=== PATIENT | female | born 1985 | race American Indian/Alaskan Native ===

== ENCOUNTER 2018-11-22 21:57 | Inpatient (IN) | payer OTHER ==
[2018-11-22 23:35] LABS: HCG Qualitative,Urine Positive (Negative)
[2018-11-22 23:37] LABS: Bilirubin,Urine NEG (Negative); Blood,Urine LG (Negative); Color,Urine Yellow (Yellow); Mucus,Urine FEW /HPF
[2018-11-22 23:38] LABS: RBC,Urine > 182.0 /HPF (0.0-6.0)
[2018-11-23 01:03] LABS: Basophils % (Auto) 0.3 % (0.0-1.8); Eosinophils % (Auto) 0.2 % (0.0-4.3); Hematocrit 33.3 % (30.3-42.9); Hemoglobin 11.4 gm/dl (10.1-14.3); Lymphocytes # (Auto) 1.7 K/mm3 (1.2-5.4); Lymphocytes % (Auto) 15.6 % (13.4-35.0); Mean Corpuscular HGB Conc 34 % (30-34); Mean Corpuscular Volume 81 fl (79-97); Monocytes # (Auto) 0.7 K/mm3 (0.0-0.8); Monocytes % (Auto) 6.4 % (0.0-7.3); Platelet Count 218 K/mm3 (140-440); Red Blood Count 4.11 M/mm3 (3.65-5.03); Red Cell Distribution Width 13.9 % (13.2-15.2)
[2018-11-23 01:18] LABS: Alanine Aminotransferase 6 units/L (7-56); Albumin 3.8 g/dL (3.9-5); BUN/Creatinine Ratio 23; Blood Urea Nitrogen 7 mg/dL (7-17); Calcium 8.8 mg/dL (8.4-10.2); Hemolysis Index 0
[2018-11-23 02:44] LABS: Bilirubin,Urine NEG (Negative); Blood,Urine LG (Negative); Color,Urine Yellow (Yellow); Mucus,Urine FEW /HPF; Urobilinogen,Urine < 2.0 mg/dL (<2.0)
[2018-11-23 02:48] LABS: HCG Qualitative,Urine Positive (Negative)
[2018-11-23 02:49] LABS: RBC,Urine > 182.0 /HPF (0.0-6.0)
--- NOTE | 2018-11-23 03:33 | Ultrasound Report ---
US OB >= 14 weeks Fetus INDICATION / CLINICAL INFORMATION: Abdominal pain and vaginal bleeding. COMPARISON: None available. FINDINGS: There is a single intrauterine with an estimated sonographic gestational age of 21 weeks 6 days and an YARA of 03/30/2019. Clinical dates are 24 weeks. The heart rate ranges from 192 thro ugh 203 bpm. presentation is cephalic. The head is low and appears to be in the endocervi gissell canal. No amniotic fluid is seen. The placenta is located posteriorly, is grade 0 and is free of the os. anatomy is difficult to evaluate due to oligohydramnios. The ovaries or not seen. IMPRESSION: 1. Single 21 week 6 day intrauterine . 2. Marked oligohydramnios. presentation is cephalic and the head appears to be in the reg ion of the cervix. Signer Name: Gigi Rutledge MD Signed: 11/23/2018 3:29 AM Workstation Name: [id number]
--- NOTE | 2018-11-23 03:51 | Emergency Department Report ---
ED Female HPI - General Chief complaint: Abdominal Pain Stated complaint: ABD PAIN AND VAGINAL BLEEDING Time Seen by Provider: 11/23/18 02:11 Source: patient, EMS Mode of arrival: Ambulatory Limitations: No Limitations - History of Present Illness Initial comments: Patient is a 33-year-old female who presented for abdominal pain and vaginal bleeding that started today now with symptoms of constipation pt denies fever or chills no n/v no back pain MD Complaint: vaginal bleeding, pelvic pain Onset/Timin -: days(s) Time: 08:00 Radiation: suprapubic Severity: moderate Severity scale (0 -10): 5 Quality: cramping, sharp Consistency: constant Improves with: none Worsens with: none Are you Now?: No Associated Symptoms: vaginal bleeding, abdominal pain - Related Data Sexually active: Yes : 0 Para: 0 A: 0 Previous Rx's Medication Instructions Recorded Last Taken Type Metoprolol [Lopressor TAB] 50 mg PO BID #60 tablet 02/01/17 Unknown Rx Allergies Allergy/AdvReac Type Severity Reaction Status Date / Time No Known Allergies Allergy Verified 01/31/17 22:37 ED Review of Systems ROS: Stated complaint: ABD PAIN AND VAGINAL BLEEDING Other details as noted in HPI Constitutional: denies: chills, fever Eyes: denies: eye pain, eye discharge, vision change ENT: denies: ear pain, throat pain Respiratory: denies: cough, shortness of breath, wheezing Cardiovascular: as per HPI Endocrine: no symptoms reported Gastrointestinal: abdominal pain. denies: nausea, vomiting, diarrhea Genitourinary: abnormal menses, other (vaginal bleeding ). denies: urgency, dysuria, frequency, discharge Musculoskeletal: back pain. denies: joint swelling, arthralgia Skin: denies: rash, lesions Neurological: denies: headache, weakness, paresthesias Psychiatric: denies: anxiety, depression Hematological/Lymphatic: denies: easy bleeding, easy bruising ED Past Medical Hx - Past Medical History Hx Hypertension: Yes - Social History Smoking Status: Current Every Day Smoker Substance Use Type: None - Medications Home Medications: Home Medications Medication Instructions Recorded Confirmed Last Taken Type Metoprolol [Lopressor TAB] 50 mg PO BID #60 tablet 02/01/17 Unknown Rx ED Physical Exam - General Limitations: No Limitations General appearance: alert, in no apparent distress - Head Head exam: Present: atraumatic, normocephalic - Eye Eye exam: Present: normal appearance, PERRL, EOMI Pupils: Present: normal accommodation - ENT ENT exam: Present: mucous membranes moist - Neck Neck exam: Present: normal inspection, full ROM. Absent: tenderness - Respiratory Respiratory exam: Present: normal lung sounds bilaterally. Absent: respiratory distress, wheezes, stridor, chest wall tenderness - Cardiovascular Cardiovascular Exam: Present: regular rate, normal rhythm, normal heart sounds - GI/Abdominal GI/Abdominal exam: Present: soft, normal bowel sounds. Absent: distended, tenderness, guarding, rebound, bruit, hernia - Rectal Rectal exam: Present: deferred - External exam: Present: normal external exam Speculum exam: Present: other ( on exam ) - Extremities Exam Extremities exam: Present: normal inspection, full ROM, normal capillary refill. Absent: tenderness, pedal edema, calf tenderness - Back Exam Back exam: Present: normal inspection, full ROM. Absent: tenderness, CVA tenderness (R), CVA tenderness (L), muscle spasm, paraspinal tenderness, rash noted - Neurological Exam Neurological exam: Present: alert, oriented X3, CN II-XII intact, normal gait, reflexes normal - Psychiatric Psychiatric exam: Present: normal affect, normal mood - Skin Skin exam: Present: warm, dry, intact, normal color. Absent: rash ED Course Vital Signs 11/22/18 11/23/18 23:04 03:26 Temperature 97.7 F 99.7 F H Pulse Rate 109 H 109 H Respiratory 18 20 Rate Blood Pressure 173/90 Blood Pressure 159/100 [Right] O2 Sat by Pulse 96 100 Oximetry ED Medical Decision Making - Lab Data Result diagrams: 11/23/18 00:45 11/23/18 00:45 Lab Results 11/22/18 11/23/18 11/23/18 Range/Units 23:20 00:45 00:45 WBC 11.1 H (4.5-11.0) K/mm3 RBC 4.11 (3.65-5.03) M/mm3 Hgb 11.4 (10.1-14.3) gm/dl Hct 33.3 (30.3-42.9) % MCV 81 (79-97) fl MCH 28 (28-32) pg MCHC 34 (30-34) % RDW 13.9 (13.2-15.2) % Plt Count 218 (140-440) K/mm3 Lymph % (Auto) 15.6 (13.4-35.0) % Stone % (Auto) 6.4 (0.0-7.3) % Eos % (Auto) 0.2 (0.0-4.3) % Baso % (Auto) 0.3 (0.0-1.8) % Lymph # 1.7 (1.2-5.4) K/mm3 Stone # 0.7 (0.0-0.8) K/mm3 Eos # 0.0 (0.0-0.4) K/mm3 Baso # 0.0 (0.0-0.1) K/mm3 Seg Neutrophils % 77.5 H (40.0-70.0) % Seg Neutrophils # 8.6 H (1.8-7.7) K/mm3 Sodium 134 L (137-145) mmol/L Potassium 3.6 (3.6-5.0) mmol/L Chloride 103.4 (98-107) mmol/L Carbon Dioxide 15 L (22-30) mmol/L Anion Gap 19 mmol/L BUN 7 (7-17) mg/dL Creatinine 0.3 L (0.7-1.2) mg/dL Estimated GFR > 60 ml/min BUN/Creatinine Ratio 23 % Glucose 98 (65-100) mg/dL Calcium 8.8 (8.4-10.2) mg/dL Total Bilirubin 0.20 (0.1-1.2) mg/dL AST 15 (5-40) units/L ALT 6 L (7-56) units/L Alkaline Phosphatase 84 (35-129) units/L Total Protein 7.2 (6.3-8.2) g/dL Albumin 3.8 L (3.9-5) g/dL Albumin/Globulin Ratio 1.1 % Lipase 38 (13-60) units/L HCG, Quant (0-4) mIU/mL Urine Color Yellow (Yellow) Urine Turbidity Slightly-cloudy (Clear) Urine pH 5.0 (5.0-7.0) Ur Specific [place] 1.033 H (1.003-1.030) Urine Protein 100 mg/dl (Negative) mg/dL Urine Glucose (UA) Neg (Negative) mg/dL Urine Ketones 80 (Negative) mg/dL Urine Blood Lg (Negative) Urine Nitrite Neg (Negative) Ur Reducing Substances Not Reportable Urine Bilirubin Neg (Negative) Urine Ictotest Not Reportable Urine Urobilinogen 2.0 (<2.0) mg/dL Ur Leukocyte Esterase Mod (Negative) Urine WBC (Auto) 5.0 (0.0-6.0) /HPF Urine RBC (Auto) > 182.0 (0.0-6.0) /HPF U Epithel Cells (Auto) 1.0 (0-13.0) /HPF Urine Mucus Few /HPF Urine HCG, Qual Positive A (Negative) Blood Type 11/23/18 11/23/18 11/23/18 Range/Units 02:00 02:02 02:10 WBC (4.5-11.0) K/mm3 RBC (3.65-5.03) M/mm3 Hgb (10.1-14.3) gm/dl Hct (30.3-42.9) % MCV (79-97) fl MCH (28-32) pg MCHC (30-34) % RDW (13.2-15.2) % Plt Count (140-440) K/mm3 Lymph % (Auto) (13.4-35.0) % Stone % (Auto) (0.0-7.3) % Eos % (Auto) (0.0-4.3) % Baso % (Auto) (0.0-1.8) % Lymph # (1.2-5.4) K/mm3 Stone # (0.0-0.8) K/mm3 Eos # (0.0-0.4) K/mm3 Baso # (0.0-0.1) K/mm3 Seg Neutrophils % (40.0-70.0) % Seg Neutrophils # (1.8-7.7) K/mm3 Sodium (137-145) mmol/L Potassium (3.6-5.0) mmol/L Chloride (98-107) mmol/L Carbon Dioxide (22-30) mmol/L Anion Gap mmol/L BUN (7-17) mg/dL Creatinine (0.7-1.2) mg/dL Estimated GFR ml/min BUN/Creatinine Ratio % Glucose (65-100) mg/dL Calcium (8.4-10.2) mg/dL Total Bilirubin (0.1-1.2) mg/dL AST (5-40) units/L ALT (7-56) units/L Alkaline Phosphatase (35-129) units/L Total Protein (6.3-8.2) g/dL Albumin (3.9-5) g/dL Albumin/Globulin Ratio % Lipase (13-60) units/L HCG, Quant 9050 H (0-4) mIU/mL Urine Color Yellow (Yellow) Urine Turbidity Clear (Clear) Urine pH 6.0 (5.0-7.0) Ur Specific [place] 1.015 (1.003-1.030) Urine Protein 30 mg/dl (Negative) mg/dL Urine Glucose (UA) Neg (Negative) mg/dL Urine Ketones 80 (Negative) mg/dL Urine Blood Lg (Negative) Urine Nitrite Neg (Negative) Ur Reducing Substances Urine Bilirubin Neg (Negative) Urine Ictotest Urine Urobilinogen < 2.0 (<2.0) mg/dL Ur Leukocyte Esterase Mod (Negative) Urine WBC (Auto) 25.0 H (0.0-6.0) /HPF Urine RBC (Auto) > 182.0 (0.0-6.0) /HPF U Epithel Cells (Auto) 1.0 (0-13.0) /HPF Urine Mucus Few /HPF Urine HCG, Qual Positive A (Negative) Blood Type AB POSITIVE - Radiology Data Radiology results: report reviewed, image reviewed Ordering Physician: NIKOLAY ASCENCIO NP Date of Service: 11/23/18 Procedure(s): US OB >= 14 weeks Fetus Accession Number(s): [id number] cc: NIKOLAY ASCENCIO NP OB >= 14 weeks Fetus INDICATION / CLINICAL INFORMATION: Abdominal pain and vaginal bleeding. COMPARISON: None available. FINDINGS: There is a single intrauterine with an estimated sonographic gestational age of 21 weeks 6 days and an YARA of 03/30/2019. Clinical dates are 24 weeks. The heart rate ranges from 192 through 203 bpm. presentation is cephalic. The head is low and appears to be in the endocervical canal. No amniotic fluid is seen. The placenta is located posteriorly, is grade 0 and is free of the os. anatomy is difficult to evaluate due to oligohydramnios. The ovaries or not seen. IMPRESSION: 1. Single 21 week 6 day intrauterine . 2. Marked oligohydramnios. presentation is cephalic and the head appears to be in the region of the cervix. Signer Name: Gigi Rutledge MD Signed: 11/23/2018 3:29 AM Workstation Name: [id number] Transcribed By: RT Dictated By: Gigi Rutledge MD Electronically Authenticated By: Gigi Rutledge MD Signed Date/Time: 11/23/18328 DD/ 2 TD/TT: - Medical Decision Making US IUP 22weeks low riding to cervical canal FHR 192, OB Paged , pt prep for transport ob, ABO: AB positive, Labs noted h/h normal, OB Team to bedside pt transported to OB at this time for definitive treatment. Critical care attestation.: If time is entered above; I have spent that time in minutes in the direct care of this critically ill patient, excluding procedure time. ED Disposition Clinical Impression: Spontaneous onset of labor Qualifiers: Weeks of gestation: 22 weeks Qualified Code(s): Z3A.22 - 22 weeks gestation of Disposition: 09 OP ADMIT IP TO THIS HOSP Is pt being admited?: Yes Does the pt Need Aspirin: No Condition: Stable Instructions: (ED), Early Labor Signs (ED) Time of Disposition: 04:20
[2018-11-23] MEDS ORDERED: ZOFRAN IV PRN (04:09)
[2018-11-23] MEDS ORDERED: DULCOLAX PR PRN (04:09)
[2018-11-23] MEDS ORDERED: TUCKS PAD TP PRN (04:09)
[2018-11-23] MEDS ORDERED: BENADRYL PO PRN (04:09)
[2018-11-23] MEDS ORDERED: MILK OF MAGNESIA PO PRN (04:09)
[2018-11-23] MEDS ORDERED: LANSINOH TP PRN (04:09)
[2018-11-23] MEDS ORDERED: TYLENOL PO PRN (04:09)
[2018-11-23] MEDS ORDERED: PHENERGAN PO PRN (04:09)
[2018-11-23] MEDS ORDERED: CYTOTEC ONE (04:25)
[2018-11-23] MEDS ORDERED: NACL 0.9% 1000 ML 1,000 ML ONE (04:27)
--- NOTE | 2018-11-23 04:31 | Event Note ---
Attendance - Indication Indication for delivery Attendance: Prematurity Mode of Delivery: Vaginal Delivery Room Comment: Called to delivery in ER. Mother unaware of and with no care. Mother estimates her last period was in June. ultrasound estimated 21.6 weeks. Mother taken to L&D and subsequently delivered. Baby taken to [facility] and was dryed, warmed, and bulb suctioned. On initial exam baby appears to be ~ 22 weeks. HR remained < 60 throughout process. Infant swaddled and taken to mother for comfort care. - at 1 minute: 0 Disposition - Disposition Disposition: Remained with Mother
--- NOTE | 2018-11-23 04:42 | Procedure Note ---
OB Delivery Note - Delivery Date of Delivery: 11/23/18 Customer Service Coordinator: ROMÁN MAK Estimated blood loss: 200cc - Vaginal Delivery presentation: vertex Intrapartum events: no care, foul smelling fluid Delivery induction: none Delivery monitor: none Route of delivery: Episiotomy: none Delivery laceration: none Anesthesia: none Delivery comments: Called urgently to the ED for imminent delivery of a pt with no care. Pt was noted to be fully dialted FHR >100 with doppler. Decision to move to L&D to better facilitate delivery and care for NB. demise very small baby NICU present 0/0. Pt very distraught Family members called by pt to come to the hospital. Placenta remains intact 30 min after delivery, minimal bleeding Pt OOB to void Cytotec 800mcg placed DC Baby remains in room with pt. Dr Munson made aware of situation. Pt given Fentanyl 100mcg IVP Placenta delivered manual extraction complete and intact, 3 vessels. Sent to pathology - Infant A at 1 minute: 0 at 5 minutes: 0 Infant Gender: Ambiguous
[2018-11-23] MEDS ORDERED: SODIUM CHLORIDE FLUSH SYRINGE 10 ML IV PRN (05:00)
[2018-11-23] MEDS ORDERED: SUBLIMAZE ONE (05:09)
[2018-11-23] MEDS ORDERED: SUBLIMAZE IV ONE (05:26)
[2018-11-23] MEDS ORDERED: CYTOTEC PR ONE (05:26)
[2018-11-23] MEDS ORDERED: PITOCin/NS 20 UNIT/1000ML DRIP 20 UNITS/1,000 ML BAG IV SCH ×2 (06:00)
[2018-11-23 06:26] LABS: Hepatitis C Virus Antibody Non-Reactive (NonReactive)
--- NOTE | 2018-11-23 06:47 | History and Physical Report ---
History of Present Illness Date of examination: 11/23/18 (pt presented to ED @ 2230 on 11-22-18 with severe pain) Date of admission: 11/23/18 03:46 Chief complaint: severe abdominal pain with bleeding that started Thursday Pt states she had a gush of fluid on Thursday @ 1999 "I did not know I was ." History of present illness: LMP June 2018 Chronic Htn had been on Metoprolol but has not taken it for several years Surgery T&A 2014 Denies drinking, former marijuana user; smokes 1 pk cigarets a day Again pt denies knowing she was Past History - Obstetrical History : 1 Para: 0 Hx # Term Pregnancies: 0 Number of Pregnancies: 0 Spontaneous Abortions: 1 (20 week demise) Induced : 0 Number of Living Children: 0 Medications and Allergies Allergies Allergy/AdvReac Type Severity Reaction Status Date / Time No Known Allergies Allergy Verified 01/31/17 22:37 Home Medications Medication Instructions Recorded Confirmed Last Taken Type Metoprolol [Lopressor TAB] 50 mg PO BID #60 tablet 02/01/17 Unknown Rx Labetalol [Labetalol 200mg TAB] 200 mg PO BID #60 tablet 11/23/18 Unknown Rx Active Meds: Active Medications Acetaminophen (Tylenol) 650 mg PO Q4H PRN PRN Reason: Pain MILD(1-3)/Fever >100.5/RAMOS Bisacodyl (Dulcolax) 10 mg FL BID PRN PRN Reason: Constipation Diphenhydramine HCl (Benadryl) 25 mg PO Q6H PRN PRN Reason: Itching Diphtheria/Tetanus/Acell Pertussis (Boostrix) 0.5 ml IM .ONCE ONE Stop: 11/24/18 06:01 Docusate Sodium (Colace) 100 mg PO BID LUNA Oxytocin/Sodium Chloride (Pitocin/Ns 20 Unit/1000ml Drip) 20 units in 1,000 mls @ 125 mls/hr IV DIRECT LUNA Ibuprofen (Ibuprofen) 600 mg PO Q6HR LUNA Magnesium Hydroxide (Milk Of Magnesia) 30 ml PO HS PRN PRN Reason: Constipation Measles/Mumps/Rubella Vaccine Live (M-M-R Ii Vaccine) 0.5 ml SUB-Q .ONCE ONE Stop: 11/24/18 04:10 Multi-Ingredient Ointment (Lansinoh) 1 applic TP PRN PRN PRN Reason: Sore Nipples Multivitamins/Iron/Calcium ( Vitamin) 1 each PO QDAY LUNA Ondansetron HCl (Zofran) 4 mg IV Q8H PRN PRN Reason: Nausea And Vomiting Promethazine HCl (Phenergan) 25 mg PO Q6H PRN PRN Reason: Nausea And Vomiting Sodium Chloride (Sodium Chloride Flush Syringe 10 Ml) 10 ml IV PRN PRN PRN Reason: LINE FLUSH Witch Sarah/Glycerin (Tucks Pad) 1 each TP PRN PRN PRN Reason: Hemorrhoid/cleansing/soothing - Vital Signs Vital signs: Vital Signs Temp Pulse Resp BP Pulse Ox 97.7 F 109 H 18 173/90 96 11/22/18 23:04 11/22/18 23:04 11/22/18 23:04 11/22/18 23:04 11/22/18 23:04 Temp Pulse Resp BP Pulse Ox 97.3 F L 78 18 148/80 100 11/23/18 05:00 11/23/18 06:34 11/23/18 05:00 11/23/18 06:34 11/23/18 03:47 - Physical Exam Breasts: Positive: deferred Cardiovascular: Regular rate, Normal S1, Normal S2 Lungs: Positive: Normal air movement Abdomen: Positive: normal appearance, soft, normal bowel sounds. Negative: distention, tenderness Genitourinary (Female): Positive: normal external genitalia Vulva: both: normal Vagina: Positive: normal moisture. Negative: discharge Cervix: Negative: lesion, discharge Uterus: Positive: normal size, normal contour Adnexa: both: normal Anus/Rectum: Positive: normal perianal skin, heme negative. Negative: rectal mass, hemorrhoids Extremities: Deep Tendon Reflex Grade: Normal +2 - Obstetrical Cervical Dilatation: 10 (per my exam in the ED) Cervical Effacement Percentage: 100 station: +1 Results Result Diagrams: 11/23/18 00:45 11/23/18 00:45 Abnormal lab results 11/22/18 11/23/18 11/23/18 Range/Units 23:20 00:45 00:45 WBC 11.1 H (4.5-11.0) K/mm3 Seg Neutrophils % 77.5 H (40.0-70.0) % Seg Neutrophils # 8.6 H (1.8-7.7) K/mm3 Sodium 134 L (137-145) mmol/L Carbon Dioxide 15 L (22-30) mmol/L Creatinine 0.3 L (0.7-1.2) mg/dL ALT 6 L (7-56) units/L Albumin 3.8 L (3.9-5) g/dL HCG, Quant (0-4) mIU/mL Ur Specific [place] 1.033 H (1.003-1.030) Urine WBC (Auto) (0.0-6.0) /HPF Urine HCG, Qual Positive A (Negative) 11/23/18 11/23/18 Range/Units 02:02 02:10 WBC (4.5-11.0) K/mm3 Seg Neutrophils % (40.0-70.0) % Seg Neutrophils # (1.8-7.7) K/mm3 Sodium (137-145) mmol/L Carbon Dioxide (22-30) mmol/L Creatinine (0.7-1.2) mg/dL ALT (7-56) units/L Albumin (3.9-5) g/dL HCG, Quant 9050 H (0-4) mIU/mL Ur Specific [place] (1.003-1.030) Urine WBC (Auto) 25.0 H (0.0-6.0) /HPF Urine HCG, Qual Positive A (Negative) All other labs normal. Assessment and Plan Called urgently to the ED for imminent delivery of a pt with no care. Pt was noted to be fully dialted FHR approx.100 with doppler. Decision to move to L&D to better facilitate delivery and care for NB. made aware Orders in EMR Elevated BPs noted will continue evaluation for hypertension
[2018-11-23] MEDS: IBUPROFEN PO SCH ×4 (07:05→22:37)
[2018-11-23] MEDS: NORMODYNE PO SCH ×2 (07:05→22:42)
[2018-11-23] MEDS ORDERED: PRENATAL VITAMIN PO SCH (10:00)
[2018-11-23] MEDS: COLACE PO SCH ×3 (13:55→22:42)
--- NOTE | 2018-11-23 19:12 | Event Note ---
Date: 11/23/18 Dr. Lopez and I met with Ms Gregorio who requested to speak with providers regarding events surrounding delivery. She states that she was not aware that she was and observed that her baby was breathing while she was holding. I explained that her baby was extremely premature and did not respond to initial respiratory resuscitation attempts therefore providing comfort care was the appropriate plan of care. I explained that respiratory efforts by the baby were normal at this gestation, though the efforts are not effective enough to sustain life. Mom was tearful but seemed to understand. We offered condolences and encouraged her to reach out if she had any further questions.
[2018-11-23 19:51] LABS: Hematocrit 29.8 % (30.3-42.9); Hemoglobin 10.3 gm/dl (10.1-14.3)
[2018-11-23] MEDS ORDERED: BENADRYL PO NR (20:10)
[2018-11-24] MEDS: IBUPROFEN PO SCH
[2018-11-24] MEDS ORDERED: M-M-R II VACCINE SUB-Q ONE (04:09)
[2018-11-24 05:14] LABS: Amphetamine Screen,Urine PRESUMPTIVE NEGATIVE; Benzodiazepines Screen,Urine PRESUMPTIVE NEGATIVE; Cannabinoid Screen,Urine PRESUMPTIVE NEGATIVE; Cocaine Screen,Urine PRESUMPTIVE NEGATIVE; Methadone Screen,Urine PRESUMPTIVE NEGATIVE; Opiate Screen,Urine PRESUMPTIVE NEGATIVE
[2018-11-24] MEDS ORDERED: BOOSTRIX IM ONE (06:00)
--- NOTE | 2018-11-24 07:05 | Discharge Summary ---
Providers - Providers Date of Admission: 11/23/18 03:46 Date of discharge: 11/24/18 (pt agrees with d/c) Attending physician: JABARI COONEY Primary care physician: INSURANCE ANALYST Hospitalization Reason for admission: labor, rupture of membranes Delivery: Episiotomy: none Laceration: none Incision: normal Other procedures: none complications: none Discharge diagnosis: intrapartum demise, delivery Hospital course: Demise of 21week fetus Pt did not know she was until she arrived to Triage Pt resting BP 112/70 FF well below umb Lochia scant Perineum intact H&H 02/01 Pt asymptomatic Stable s/p demise of 21w fetus Vaginal delivery. P: d/c today encouraged to f/u with PCP regarding hypertension Information given to f/u with [facility] for care Condition at discharge: Good Disposition: DC-01 TO HOME OR SELFCARE - Discharge Diagnoses (1) demise > 22 weeks, delivered, current hospitalization Status: Acute Comment: RTO 6 weeks PP care Plan - Discharge Medications Prescriptions: Labetalol [Labetalol 200mg TAB] 200 mg PO BID #60 tablet - Provider Discharge Summary Activity: routine, no sex for 6 weeks, no heavy lifting 4 weeks, no strenuous exercise Diet: routine Instructions: routine Additional instructions: [] Smoking cessation referral if applicable(refer to patient education folder for contact #) [] Refer to [facility] Booklet Call your doctor immediately for: * Fever > 100.5 * Heavy vaginal bleeding ( >1 pad per hour) * Severe persistent headache * Shortness of breath * Reddened, hot, painful area to leg or breast * Drainage or odor from incision. * Keep incision clean and dry at all times and follow doctor's instructions regarding bathing/showering - Follow up plan Follow up: PRIMARY CARE, [Primary Care Provider] - 7 Days ROMÁN MAK CNM [Advanced Practice Nurse] - 6 Weeks ([facility] [address] [address] [facility] [address] Call for a visit in 4 weeks.)
[2018-11-24 09:05] VITALS: BP 121/76
== END 2018-11-24 09:30 | disposition home or self-care (01) | DRG 805 ==
LOC: ED 21:57 → TRG 21:57 → LD 11-23 03:46 → OB 11-23 09:17
PROVIDERS: ADMIT Obstetrics & Gynecology; ATTEND Obstetrics & Gynecology
PROC: 10E0XZZ Delivery of Products of Conception, External Approach (ICD-10-PCS; principal; 2018-11-23)
PROC: 3E0234Z Introduction of Serum, Toxoid and Vaccine into Muscle, Percutaneous Approach (ICD-10-PCS; 2018-11-24)
DX: O10.92 Unspecified pre-existing hypertension complicating childbirth (principal); O60.12X0 Preterm labor second trimester with preterm delivery second trimester, not applicable or unspecified; Z37.1 Single stillbirth; O99.334 Smoking (tobacco) complicating childbirth; F17.210 Nicotine dependence, cigarettes, uncomplicated; Z3A.21 21 weeks gestation of pregnancy; Z23 Encounter for immunization
CPT/HCPCS: 36415; 76805; 80053; 80307; 81001; 81025; 83690; 84702; 85014; 85018; 85025; 86592; 86706; 86762; 86803; 86900; 86901; 87086; 87806; 88305; 90707; G0378; J2590; J3010; J7030